=== PATIENT | female | born 1980 | race Caucasian/White ===

== ENCOUNTER 2018-02-08 07:00 | Inpatient (IN) | payer OTHER ==
[~2018-02-08] VITALS: Ht 168.9 cm; Wt 77.6 kg
[~2018-02-08 07:00] MED LIST: AMLO5TAB2 PO; B12/1TAB3 SL; BACL-19 PO; CHOL10003 PO; DIPH25CA61 PO; DOCO100C PO; IBUP-1221 PO; LACT1CAP37 PO; OMEG1CAP34 PO; OMEP-110 PO; SUMA50TA4 PO; TURM1POW2 PO; VITA1TAB19 PO; [UNRECOGNIZED DRUG - OTHER] TD
[2018-02-08] MEDS ORDERED: THROMBIN 20,000 UNIT VIAL TP ONE (07:26)
[2018-02-08] MEDS ORDERED: BUPIVACAINE/PF 0.5% ONE (07:26)
[2018-02-08] MEDS ORDERED: BACITRACIN 50,000 UNIT ONE (07:26)
[2018-02-08] MEDS ORDERED: EPINEPHRINE 1 MG/ML, 1ML ONE (07:26)
[2018-02-08 07:58] VITALS: BP 132/86
[2018-02-08] MEDS ORDERED: OxyconTIN ER 20 MG TAB.ER PO ONE (08:00)
[2018-02-08] MEDS ORDERED: SCOPOLAMINE PATCH, 1.5MG PATCH.TD72 TD ONE (08:00)
[2018-02-08] MEDS ORDERED: ONDANSETRON ODT 8 MG PO ONE (08:00)
[2018-02-08] MEDS ORDERED: LACTATED RINGERS 1,000 ML IV SCH (08:02)
[2018-02-08] MEDS ORDERED: LIDOCAINE-MPF 1%, 2ML ONE (08:08)
[2018-02-08] MEDS ORDERED: MIDAZOLAM 1 MG/ML, 2ML ONE (08:22)
[2018-02-08] MEDS ORDERED: FENTANYL PF 250 MCG/5ML ONE ×2 (08:22→10:24)
[2018-02-08] MEDS ORDERED: PROPOFOL 10 MG/ML, 20ML ONE (08:23)
[2018-02-08] MEDS ORDERED: ROCURONIUM 10MG/ML,5ML ONE (08:23)
[2018-02-08] MEDS ORDERED: WATER-INJECTION,STERILE 10 ML IV ONE (08:24)
[2018-02-08] MEDS ORDERED: CEFAZOLIN 1,000 MG ONE ×2 (08:24)
[2018-02-08] MEDS ORDERED: SUCCINYLCHOLINE 20 MG/ML, 10ML ONE (08:24)
[2018-02-08] MEDS ORDERED: PROPOFOL 50 ML ONE ×2 (08:26→10:51)
[2018-02-08] MEDS ORDERED: LIDOCAINE-MPF 1%, 2ML INFIL ONE (08:30)
[2018-02-08] MEDS ORDERED: DEXAMETHASONE 4 MG/ML, 1ML ONE ×2 (09:39)
[2018-02-08] MEDS ORDERED: PROMETHAZINE 25 MG SUPP PR PRN (10:00)
[2018-02-08] MEDS ORDERED: DIAZEPAM 5 MG/ML, 2ML IVPush PRN (10:00)
[2018-02-08] MEDS ORDERED: PROMETHAZINE 25 MG/ML, 1ML IV PRN (10:00)
[2018-02-08] MEDS ORDERED: MEPERIDINE/PF 25MG/0.5ML IVPush PRN (10:00)
[2018-02-08] MEDS ORDERED: LABETALOL 5MG/ML, 20ML IV PRN (10:00)
[2018-02-08] MEDS ORDERED: PROMETHAZINE 12.5 MG SUPP PR PRN (10:00)
[2018-02-08] MEDS ORDERED: MORPHINE SULFATE 4 MG/ML, 1ML IVPush PRN (10:00)
[2018-02-08] MEDS ORDERED: ONDANSETRON ODT 8 MG PO PRN (10:00)
[2018-02-08] MEDS ORDERED: OXYcodone 5 MG/5 ML ORAL.SOL UDC PO PRN (10:00)
[2018-02-08] MEDS ORDERED: hydrALAzine 20 MG/ML, 1ML IV PRN (10:00)
[2018-02-08] MEDS ORDERED: HYDROmorphone 1 MG/ML, 1ML ONE (11:45)
[2018-02-08] MEDS ORDERED: FENTANYL PF 100 MCG/2ML ONE (11:45)
[2018-02-08] MEDS: FENTANYL PF 100 MCG/2ML IV PRN ×2 (11:50→12:17)
[2018-02-08] MEDS ORDERED: METHOCARBAMOL 1,000 MG in DEXTROSE 5% 100 ML IV ONE (12:00)
[2018-02-08] MEDS: HYDROmorphone 1 MG/ML, 1ML IV PRN ×2 (12:03→12:12)
[2018-02-08] MEDS ORDERED: methylPREDNISolone *ACETATE* 40 MG/ML IM ONE (14:30)
[2018-02-08] MEDS ORDERED: HYDROcodone/APAP 10/325 MG TABLET ONE (15:27)
[2018-02-08] MEDS ORDERED: HYDROcodone/APAP 10/325 MG TABLET PO ONE (16:00)
== END 2018-02-08 15:45 | disposition home or self-care (01) | DRG 472 ==
LOC: ORIP 07:00
PROVIDERS: ADMIT Neurological Surgery; ATTEND Neurological Surgery
PROC: 00NW0ZZ Release Cervical Spinal Cord, Open Approach (ICD-10-PCS; 2018-02-08)
PROC: 0RB30ZZ Excision of Cervical Vertebral Disc, Open Approach (ICD-10-PCS; 2018-02-08)
PROC: 4A11X4G Monitoring of Peripheral Nervous Electrical Activity, Intraoperative, External Approach (ICD-10-PCS; 2018-02-08)
PROC: 0RG10A0 Fusion of Cervical Vertebral Joint with Interbody Fusion Device, Anterior Approach, Anterior Column, Open Approach (ICD-10-PCS; principal; 2018-02-08 09:00)
DX: M50.122 Cervical disc disorder at C5-C6 level with radiculopathy (principal); M50.022 Cervical disc disorder at C5-C6 level with myelopathy; M48.02 Spinal stenosis, cervical region; G43.909 Migraine, unspecified, not intractable, without status migrainosus; M46.1 Sacroiliitis, not elsewhere classified; M25.78 Osteophyte, vertebrae; M51.36 Other intervertebral disc degeneration, lumbar region; Z82.49 Family history of ischemic heart disease and other diseases of the circulatory system; Z90.89 Acquired absence of other organs; Z88.8 Allergy status to other drugs, medicaments and biological substances
CPT/HCPCS: 72040; 81025; C1713; J0171; J0690; J1100; J1170; J2250; J2704; J3010; J3490; Q0162; J0330; J1030; J2800; J7120